=== PATIENT | female | born 1970 | race Caucasian/White ===

== ENCOUNTER 2017-07-18 10:55 | Outpatient (CLI) | payer BC ==
--- NOTE | 2017-07-18 13:29 | MMO ---
BILATERAL MAMMOGRAMS: HISTORY: Screening mammography. COMPARISON: 05/18/2014 and 06/20/2016. FINDINGS: Scattered fibroglandular densities are again demonstrated. There is no dominant mass or suspicious calcifications. The study was evaluated with the assistance of computer-aided detection. IMPRESSION: BI-RADS category 1. Negative. Suggest routine followup. POS: [facility]
== END 2017-07-18 10:56 | disposition home or self-care (01) ==
LOC: SCSMAMMO 10:55
PROVIDERS: ATTEND Family Medicine
DX: Z12.31 Encounter for screening mammogram for malignant neoplasm of breast (principal)
CPT/HCPCS: 77067; G0202

== ENCOUNTER 2018-10-10 08:17 | Outpatient (CLI) | payer BC ==
--- NOTE | 2018-10-10 10:24 | MMO ---
BILATERAL DIGITAL SCREENING MAMMOGRAMS: History: 48-year-old female presents for digital screening mammography. Comparison: 07-18-17, 16, 15, 05-18-14 This study is interpreted with the assistance of computer aided detection. FINDINGS: Scattered areas of fibroglandular density are noted bilaterally. There are stable bilateral parenchym al density asymmetries. No direct or indirect evidence of malignancy. IMPRESSION: BIRADS category 2 - benign findings. Continued routine screening. POS: [facility]
== END 2018-10-10 08:18 | disposition home or self-care (01) ==
LOC: SCSMAMMO 08:17
PROVIDERS: ATTEND Obstetrics & Gynecology
DX: Z12.31 Encounter for screening mammogram for malignant neoplasm of breast (principal)
CPT/HCPCS: 77067

== ENCOUNTER 2024-05-07 06:34 | Day surgery (SDC) | payer BC ==
[2024-04-27 15:22] VITALS: BMI 25.0
[2024-05-07] MEDS ORDERED: fentaNYL PF 100 MCG/2 ML SYRINGE ONE (08:00)
[2024-05-07] MEDS ORDERED: Midazolam HCl 2 mg/2 ml Vial ONE (08:00)
[2024-05-07] MEDS ORDERED: PROPOFOL 20 ML ONE ×2 (08:00→08:05)
[2024-05-07] MEDS ORDERED: Dexamethasone 20 MG/5 ML VIAL ONE (08:01)
[2024-05-07] MEDS ORDERED: Lidocaine 1% PF 5 ML VIAL ONE (08:01)
[2024-05-07] MEDS ORDERED: Ondansetron PF 4 MG/2 ML Vial ONE (08:01)
[2024-05-07] MEDS ORDERED: Oxymetazoline HCl 0.05% (30 ML BOT) ONE (09:09)
[2024-05-07] MEDS ORDERED: Bacitracin Zinc Ointment 30 gm TUBE ONE (09:09)
[2024-05-07] MEDS ORDERED: EPINEPHrine 1 MG/ML VIAL ONE (09:09)
[2024-05-07] MEDS ORDERED: Lidocaine 1% (PF) 30 ML VIAL ONE (09:09)
[2024-05-07] MEDS ORDERED: AFRIN NASAL MIST 15 ML BOT ONE (09:28)
[2024-05-07] MEDS ORDERED: PHENYLEPHRINE-NS 100 MCG/ML 10 ML SYRINGE ONE (10:25)
[2024-05-07] MEDS ORDERED: Morphine 2 MG/ML VIAL ONE (13:19)
[2024-05-07] MEDS ORDERED: HYDROcodone/Acetaminophen 5/325 mg Tablet ONE (13:58)
== END 2024-05-07 14:15 | disposition home or self-care (01) ==
LOC: SDC 06:34
PROVIDERS: ATTEND Specialist
PROC: 09TT8ZZ Resection of Left Frontal Sinus, Via Natural or Artificial Opening Endoscopic (ICD-10-PCS; principal; 2024-05-07)
PROC: 09TR8ZZ Resection of Left Maxillary Sinus, Via Natural or Artificial Opening Endoscopic (ICD-10-PCS; principal; 2024-05-07)
PROC: 09TQ8ZZ Resection of Right Maxillary Sinus, Via Natural or Artificial Opening Endoscopic (ICD-10-PCS; principal; 2024-05-07)
PROC: 09TS8ZZ Resection of Right Frontal Sinus, Via Natural or Artificial Opening Endoscopic (ICD-10-PCS; principal; 2024-05-07)
PROC: 09TL8ZZ Resection of Nasal Turbinate, Via Natural or Artificial Opening Endoscopic (ICD-10-PCS; principal; 2024-05-07)
PROC: 09TU8ZZ Resection of Right Ethmoid Sinus, Via Natural or Artificial Opening Endoscopic (ICD-10-PCS; principal; 2024-05-07)
PROC: 09TV8ZZ Resection of Left Ethmoid Sinus, Via Natural or Artificial Opening Endoscopic (ICD-10-PCS; principal; 2024-05-07)
PROC: 09BM8ZZ Excision of Nasal Septum, Via Natural or Artificial Opening Endoscopic (ICD-10-PCS; principal; 2024-05-07)
DX: J34.2 Deviated nasal septum (principal); J34.3 Hypertrophy of nasal turbinates; J32.8 Other chronic sinusitis; J01.81 Other acute recurrent sinusitis; R51.9 Headache, unspecified; G47.33 Obstructive sleep apnea (adult) (pediatric); K13.79 Other lesions of oral mucosa; Z79.899 Other long term (current) drug therapy
CPT/HCPCS: J0171; J1100; J2001; J2250; J2272; J2405; J2704